=== PATIENT | male | born 1955 | race Caucasian/White ===

== ENCOUNTER 2018-07-23 15:12 | Emergency (ER) | payer OTHER, BC ==
[2018-07-23 15:51] LABS: BASOPHILS # (AUTO) 0.1 10^3/uL (0.0-0.1); BASOPHILS % (AUTO) 0.4 %; EOSINOPHILS % (AUTO) 0.1 %; HGB - HEMOGLOBIN 14.7 g/dL (14.0-18.0); LYMPHOCYTES # (AUTO) 0.8 10^3/uL (1.5-3.5); LYMPHOCYTES % (AUTO) 6.3 %; MEAN CORPUSCULAR HEMOGLOBIN 30.6 pg (27.0-31.0); MEAN CORPUSCULAR HGB CONC 33.6 g/dL (32.0-36.0); MEAN CORPUSCULAR VOLUME 90.9 fL (80.0-94.0); MEAN PLATELET VOLUME 8.6 fL (7.4-11.4); MONOCYTES # (AUTO) 1.2 10^3/uL (0.0-1.0); MONOCYTES % (AUTO) 8.7 %; NEUTROPHILS # (AUTO) 11.3 10^3/uL (1.5-6.6); NEUTROPHILS % (AUTO) 84.5 %; PLT - PLATELET COUNT 193 10^3/uL (130-450); RED CELL DISTRIBUTION WIDTH 14.3 % (12.0-15.0); WHITE BLOOD COUNT 13.4 x10^3/uL (4.8-10.8)
[2018-07-23 16:09] LABS: ALBUMIN 4.7 g/dL (3.2-5.5); ALBUMIN/GLOBULIN RATIO 1.3 (1.0-2.2); BILIRUBIN,TOTAL 1.1 mg/dL (0.2-1.0); CALCIUM 9.7 mg/dL (8.5-10.3); CREATININE 1.1 mg/dL (0.6-1.2); TOTAL PROTEIN 8.2 g/dL (6.7-8.2)
--- NOTE | 2018-07-23 19:29 | ED Physician Documentation ---
PD HPI ABD PAIN - Stated complaint Stated Complaint: RT SIDE PX/VOMITING - Chief complaint Chief Complaint: Abd Pain - History obtained from History obtained from: Patient - History of Present Illness Timing - onset: Last night (overnight had onset of abd pain and firmness of an abdominal hernia. Typically it is softer but rarely reducible. He had vomiting and distension of the abdomen. This continued through the day, and the patient tried resting on back, some pressure on the hernia, but was not improving. He has had it get hard and feel nauseated in the past, but has been for just few minutes at a time. He has been in consultation with Dr. Garcia, surgery at [facility], who did the initial hernia repair, and has been following on this recurrent hernia.) Timing - duration: Days (1) Timing - details: Abrupt onset Quality: Cramping, Aching, Fullness/distended, Pain Location: All over / everywhere (but particularly at the hernia area.) Radiation: No: Chest, Lower back Improved by: Vomiting Worsened by: Eating, Palpation. No: Breathing Similar symptoms before: Has not had sx before (has had pains at the hernia, but no prior episodes) Recently seen: Not recently seen Review of Systems Ten Systems: 10 systems reviewed and negative Constitutional: denies: Fever, Chills Nose: denies: Rhinorrhea / runny nose, Congestion Throat: denies: Sore throat Cardiac: denies: Chest pain / pressure, Palpitations Respiratory: denies: Cough GI: reports: Abdominal Pain, Abdominal Swelling (today), Nausea, Vomiting : denies: Dysuria, Frequency Neurologic: denies: Generalized weakness, Near syncope, Altered mental status PD PAST MEDICAL HISTORY - Past Medical History Cardiovascular: None Respiratory: None Neuro: None GI: None : Other (kidney transplant) Musculoskeletal: Other (abdominal hernia) - Past Surgical History Past Surgical History: Yes - Present Medications Home Medications: Ambulatory Orders Medication Instructions Recorded Confirmed Aspirin [Aspir 81] 81 mg PO DAILY 05/15/14 03/09/15 Cholecalciferol (Vitamin D3) 50 mcg PO DAILY 05/15/14 03/09/15 [Vitamin D-3] Ezetimibe [Zetia] 10 mg PO QPM 05/15/14 03/09/15 Metoprolol Tartrate 25 mg PO BID 05/15/14 03/09/15 Mycophenolate Mofetil [Cellcept] 500 mg PO BID 05/15/14 03/09/15 cycloSPORINE [Cyclosporine] 100 mg PO BID 05/15/14 03/09/15 Hydrocodone/Acetaminophen [Hallock 1 each PO Q6H PRN #20 tablet 03/09/15 5-325 Tablet] Allopurinol 100 mg PO DAILY 06/05/16 06/05/16 - Allergies Allergies/Adverse Reactions: Allergies Allergy/AdvReac Type Severity Reaction Status Date / Time Ykvneaw-Pnr-Nkx Reductase Allergy Unknown Verified 07/23/18 15:23 Inhibitor - Social History Does the pt smoke?: No Smoking Status: Never smoker Does the pt drink ETOH?: Yes Does the pt have substance abuse?: No - Immunizations Immunizations are current?: Yes PD ED PE NORMAL - Vitals Vital signs reviewed: Yes - General General: Alert and oriented X 3, Well developed/nourished, Other - HEENT HEENT: Atraumatic, Pharynx benign. No: Moist mucous membranes - Neck Neck: Supple, no meningeal sign, No adenopathy - Cardiac Cardiac: RRR, No murmur - Respiratory Respiratory: Clear bilaterally - Abdomen Abdomen: No organomegaly, Other (moderate distension generally. There is large firm tender hernia mass right periumbilical area. The hernia is not reducible. Increased bowel sounds generally in abdomen. ). No: Normal bowel sounds - Male Male : Deferred - Rectal Rectal: Deferred - Back Back: No CVA TTP - Derm Derm: Normal color - Extremities Extremities: No deformity, No tenderness to palpate, Normal ROM s pain, No edema, No calf tenderness / cord - Neuro Neuro: Alert and oriented X 3, No motor deficit, Normal speech Results - Vitals Vitals: Vital Signs - 24 hr 07/23/18 07/23/18 07/23/18 15:19 18:03 21:12 Temperature 36.7 C 37.1 C Heart Rate 73 78 53 L Respiratory 16 16 11 L Rate Blood Pressure 157/90 H 155/82 H 125/76 O2 Saturation 97 98 97 07/23/18 23:22 Temperature 37.6 C H Heart Rate 77 Respiratory 16 Rate Blood Pressure 105/61 O2 Saturation 97 Oxygen O2 Source Room air - Labs Labs: Laboratory Tests 07/23/18 07/23/18 15:46 15:46 WBC 13.4 H RBC 4.80 Hgb 14.7 Hct 43.6 MCV 90.9 MCH 30.6 MCHC 33.6 RDW 14.3 Plt Count 193 MPV 8.6 Neut # (Auto) 11.3 H Lymph # (Auto) 0.8 L Centre # (Auto) 1.2 H Eos # (Auto) 0.0 Baso # (Auto) 0.1 Absolute Nucleated RBC 0.00 Nucleated RBC % 0.0 Sodium 140 Potassium 3.9 Chloride 107 Carbon Dioxide 22 Anion Gap 11.0 BUN 27 H Creatinine 1.1 Estimated GFR (MDRD) 68 L Glucose 140 H Calcium 9.7 Total Bilirubin 1.1 H AST 23 ALT 23 Alkaline Phosphatase 76 Total Protein 8.2 Albumin 4.7 Globulin 3.5 Albumin/Globulin Ratio 1.3 Lipase 21 L - Rads (name of study) abd CT Radiology: Prelim report reviewed (incarcerated hernia with upstream small bowl obstruction pattern. Renal transplant noted. ), EMP read contemporaneously, See rad report PD MEDICAL DECISION MAKING - ED course Complexity details: reviewed results, re-evaluated patient (The patient is having less abdominal pain and no vomiting at this time. He took some sips of water and feels slightly bloated. His abdomen is much less tender generally. The umbilical or abdominal wall hernia is not reducible but it is less hard than it was on first presentation. The CT scan shows bowel obstruction pattern. At this point I think the patient will need surgical intervention. He has been working with a Dr. Garcia, Surgery, at [facility] about this. The patient has received his kidney transplant at [facility] as well. His preference would be to be transferred for more definitive care. I do feel he is stable for transfer.), considered differential, d/w patient, d/w solutions sales consultant (Yokasta Proctor, pension adviser for surgery at [facility]. ) Departure - Departure Disposition: 02 Transfer Acute Care Hosp Clinical Impression: Incarcerated hernia of abdominal cavity, Partial small bowel obstruction Condition: Stable Record reviewed to determine appropriate education?: Yes
[2018-07-23] MEDS: HYDROmorphone 1 MG/ML CARPUJECT IVP STA ×2 (20:28→23:59)
[2018-07-23] MEDS: ONDANSETRON 4 MG/2 ML VIAL IVP STA (20:28)
[2018-07-23] MEDS: SODIUM CHLORIDE 0.9% 1,000 ML IV ONE ×2 (20:28→23:59)
[2018-07-23] MEDS ORDERED: IOVERSOL 320 100 ML VIAL IVP ONE (22:07)
--- NOTE | 2018-07-23 22:39 | CT Report ---
Reason: hernia with vomiting; eval for obstruction Procedure Date: 07/23/2018 Accession Number: [id number] / [id number] Procedure: CT - Abdomen/Pelvis W/ CPT Code: FULL RESULT: EXAM: CT ABDOMEN AND PELVIS WITH CONTRAST. EXAM DATE: 07/23/2018 10:23 PM. CLINICAL HISTORY: Hernia with vomiting; evaluate for obstruction. COMPARISONS: None. TECHNIQUE: Routine helical CT imaging was performed through the abdomen and pelvis. IV contrast: Yes . Enteric contrast: No . Reconstructions: Coronal and sagittal. In accordance with CT protocol optimization, one or more of the following dose reduction techniques were utilized for this exam: automated exposure control, adjustment of mA and/or KV based on patient size, or use of iterative reconstructive technique. FINDINGS: Lung Bases: Unremarkable. Liver: Unremarkable. No suspicious masses. Gallbladder/Bile Ducts: Unremarkable. Spleen: Unremarkable. Pancreas: Unremarkable. Adrenal Glands: Unremarkable. Kidneys: Atrophic [place] kidneys with unremarkable appearing left pelvic transplant kidney. Peritoneal Cavity/Bowel: Mid small bowel obstruction with transition in a large left periumbilical hernia containing a moderately long segment of incarcerated mid small bowel. Mild mesenteric edema adjacent to the dilated loops of proximal bowel. No gross bowel wall thickening or free air. Pelvic Organs: Bladder and prostate appear unremarkable. Vasculature: No aneurysms or other significant abnormality. Bones: No significant abnormality. Other: Smaller supraumbilical midline fat-containing hernia is without apparent complication. IMPRESSION: 1. Small bowel obstruction secondary to an incarcerated segment of mid small bowel within a large left periumbilical hernia. Mild mesenteric edema. 2. Smaller supraumbilical midline fat-containing hernias without apparent complication. 3. Left pelvic transplant kidney appears unremarkable. RADIA
[2018-07-24] MEDS: ONDANSETRON 4 MG/2 ML VIAL IVP STA (00:03)
[2018-07-24 01:32] VITALS: BP 136/69
[2018-07-24] MEDS ORDERED: IOVERSOL 320 100 ML VIAL IVP ONE (03:18)
[2018-07-24] MEDS: IOVERSOL 320 100 ML VIAL IVP ONE (03:18)
== END 2018-07-24 01:59 | disposition short-term general hospital (02) ==
LOC: ED 15:12
DX: K42.0 Umbilical hernia with obstruction, without gangrene (principal); K56.609 Unspecified intestinal obstruction, unspecified as to partial versus complete obstruction; Z94.0 Kidney transplant status; Z79.82 Long term (current) use of aspirin
CPT/HCPCS: 36415; 74177; 80053; 81001; 81003; 83690; 85025; 87086; 96361; 96374; 96375; 96376; 99284

== ENCOUNTER 2018-09-23 11:43 | Outpatient (CLI) | payer OTHER, BC ==
--- NOTE | 2018-09-23 15:14 | XRAY Report ---
Reason: ANKLE JOINT PX, LEFT/GOUTY ARTHROPATHY Procedure Date: 09/23/2018 Accession Number: [id number] / [id number] Procedure: WCP - Ankle 2 View LT CPT Code: FULL RESULT: EXAM: LEFT ANKLE RADIOGRAPHY EXAM DATE: 09/23/2018 11:55 AM. CLINICAL HISTORY: Ankle joint pain, left/gouty arthropathy. COMPARISON: None. TECHNIQUE: 2 views. FINDINGS: Bones: Mild posterior and inferior calcaneal enthesopathy is noted. No fractures or bone lesions. Joints: Trace ankle effusion. No subluxations. The ankle mortise is normally aligned. Soft Tissues: Soft tissue swelling. IMPRESSION: No definite destructive osseous changes. RADIA
== END 2018-09-23 11:44 | disposition home or self-care (01) ==
LOC: DI.WCP 11:43
PROVIDERS: ATTEND Family Medicine
DX: M25.572 Pain in left ankle and joints of left foot (principal); M10.00 Idiopathic gout, unspecified site
CPT/HCPCS: 36415; 84550

== ENCOUNTER 2018-09-23 12:06 | Outpatient (CLI) | payer OTHER, BC | END 2018-09-23 12:07 | disposition home or self-care (01) | LOC: LAB.WCP 12:06 | PROVIDERS: ATTEND Family Medicine | DX: M25.572 Pain in left ankle and joints of left foot (principal); M10.00 Idiopathic gout, unspecified site | CPT/HCPCS: 36415; 84550 ==

== ENCOUNTER 2019-02-18 11:09 | Outpatient (CLI) | payer OTHER, BC ==
[2019-02-18 19:02] LABS: BASOPHILS # (AUTO) 0.1 10^3/uL (0.0-0.1); BASOPHILS % (AUTO) 1.5 %; EOSINOPHILS # (AUTO) 0.2 10^3/uL (0.0-0.7); EOSINOPHILS % (AUTO) 3.6 %; LYMPHOCYTES # (AUTO) 1.5 10^3/uL (1.5-3.5); LYMPHOCYTES % (AUTO) 27.8 %; MEAN CORPUSCULAR HEMOGLOBIN 29.2 pg (27.0-31.0); MEAN CORPUSCULAR HGB CONC 30.3 g/dL (32.0-36.0); MEAN CORPUSCULAR VOLUME 96.4 fL (80.0-94.0); MEAN PLATELET VOLUME 11.2 fL (7.4-11.4); MONOCYTES # (AUTO) 0.8 10^3/uL (0.0-1.0); MONOCYTES % (AUTO) 15.1 %; NEUTROPHILS # (AUTO) 2.7 10^3/uL (1.5-6.6); NEUTROPHILS % (AUTO) 51.6 %; PLT - PLATELET COUNT 217 10^3/uL (130-450); RED BLOOD COUNT 4.45 10^6/uL (4.70-6.10); RED CELL DISTRIBUTION WIDTH 14.3 % (12.0-15.0); WHITE BLOOD COUNT 5.3 x10^3/uL (4.8-10.8)
[2019-02-18 19:27] LABS: ALBUMIN 4.3 g/dL (3.2-5.5); ALBUMIN/GLOBULIN RATIO 1.2 (1.0-2.2); BILIRUBIN,TOTAL 0.7 mg/dL (0.2-1.0); CALCIUM 9.8 mg/dL (8.5-10.3); TOTAL PROTEIN 7.9 g/dL (6.7-8.2)
== END 2019-02-18 11:10 | disposition home or self-care (01) ==
LOC: LAB.WCP 11:09
PROVIDERS: ATTEND Family Medicine
DX: I10 Essential (primary) hypertension (principal); Z12.5 Encounter for screening for malignant neoplasm of prostate
CPT/HCPCS: 36415; 80053; 84153; 85025

== ENCOUNTER 2019-10-09 12:38 | Outpatient (CLI) | payer OTHER, BC ==
[2019-10-09 13:15] LABS: BASOPHILS # (AUTO) 0.1 10^3/uL (0.0-0.1); BASOPHILS % (AUTO) 1.4 %; EOSINOPHILS # (AUTO) 0.2 10^3/uL (0.0-0.7); EOSINOPHILS % (AUTO) 2.7 %; HGB - HEMOGLOBIN 14.4 g/dL (14.0-18.0); LYMPHOCYTES # (AUTO) 1.9 10^3/uL (1.5-3.5); LYMPHOCYTES % (AUTO) 28.4 %; MEAN CORPUSCULAR HEMOGLOBIN 30.2 pg (27.0-31.0); MEAN CORPUSCULAR HGB CONC 31.9 g/dL (32.0-36.0); MEAN CORPUSCULAR VOLUME 94.5 fL (80.0-94.0); MEAN PLATELET VOLUME 10.3 fL (7.4-11.4); MONOCYTES # (AUTO) 0.8 10^3/uL (0.0-1.0); MONOCYTES % (AUTO) 12.5 %; NEUTROPHILS # (AUTO) 3.6 10^3/uL (1.5-6.6); NEUTROPHILS % (AUTO) 54.4 %; PLT - PLATELET COUNT 212 10^3/uL (130-450); RED BLOOD COUNT 4.77 10^6/uL (4.70-6.10); RED CELL DISTRIBUTION WIDTH 13.8 % (12.0-15.0); WHITE BLOOD COUNT 6.7 x10^3/uL (4.8-10.8)
[2019-10-09 13:19] LABS: BILIRUBIN,URINE NEGATIVE (NEGATIVE); GLUCOSE, URINE (UA) NEGATIVE (NEGATIVE); KETONES,URINE (UA) NEGATIVE (NEGATIVE); LEUKOCYTE ESTERASE, URINE NEGATIVE (NEGATIVE); NITRITE,URINE NEGATIVE (NEGATIVE); OCCULT BLOOD,URINE MODERATE (NEGATIVE); PH,URINE 5.5 PH (5.0-7.5); PROTEIN,URINE TRACE mg/dL (NEGATIVE); UROBILINOGEN,URINE 0.2 (NORMAL) E.U./dL (NORMAL)
[2019-10-09 13:25] LABS: CLARITY,URINE CLEAR (CLEAR)
[2019-10-09 13:27] LABS: BACTERIA,URINE Rare /HPF (None Seen); RBC,URINE 0-5 /HPF (0-5); SQUAMOUS EPITHELIAL CELL,UR NONE SEEN (<= Few)
[2019-10-09 13:34] LABS: ALBUMIN 4.6 g/dL (3.2-5.5); CALCIUM 9.7 mg/dL (8.5-10.3); CREATININE 1.3 mg/dL (0.6-1.2); PHOSPHORUS 3.8 mg/dL (2.5-4.6); URIC ACID 5.8 mg/dL (2.6-7.2)
[2019-10-09 14:00] LABS: MAGNESIUM 2.5 mg/dL (1.7-2.8)
== END 2019-10-09 12:39 | disposition home or self-care (01) ==
LOC: LAB 12:38
PROVIDERS: ATTEND Internal Medicine Nephrology
DX: Z94.0 Kidney transplant status (principal)
CPT/HCPCS: 36415; 80069; 80158; 81001; 81003; 81599; 82310; 83540; 83735; 83970; 84466; 84550; 85025; 87086

== ENCOUNTER 2020-01-07 11:12 | Outpatient (CLI) | payer OTHER, BC ==
[2020-01-07 11:34] LABS: BASOPHILS # (AUTO) 0.1 10^3/uL (0.0-0.1); BASOPHILS % (AUTO) 1.6 %; EOSINOPHILS # (AUTO) 0.2 10^3/uL (0.0-0.7); MEAN CORPUSCULAR HEMOGLOBIN 30.4 pg (27.0-31.0); MEAN CORPUSCULAR HGB CONC 32.6 g/dL (32.0-36.0); MEAN CORPUSCULAR VOLUME 93.5 fL (80.0-94.0); MONOCYTES # (AUTO) 0.7 10^3/uL (0.0-1.0); MONOCYTES % (AUTO) 11.7 %; NEUTROPHILS # (AUTO) 3.3 10^3/uL (1.5-6.6); NEUTROPHILS % (AUTO) 52.1 %; PLT - PLATELET COUNT 256 10^3/uL (130-450); RED CELL DISTRIBUTION WIDTH 13.7 % (12.0-15.0); WHITE BLOOD COUNT 6.3 x10^3/uL (4.8-10.8)
[2020-01-07 11:43] LABS: BILIRUBIN,URINE NEGATIVE (NEGATIVE); GLUCOSE, URINE (UA) NEGATIVE (NEGATIVE); KETONES,URINE (UA) NEGATIVE (NEGATIVE); LEUKOCYTE ESTERASE, URINE NEGATIVE (NEGATIVE); NITRITE,URINE NEGATIVE (NEGATIVE); OCCULT BLOOD,URINE MODERATE (NEGATIVE); PH,URINE 5.5 PH (5.0-7.5); PROTEIN,URINE 100 mg/dL (NEGATIVE); UROBILINOGEN,URINE 0.2 (NORMAL) E.U./dL (NORMAL)
[2020-01-07 11:45] LABS: CLARITY,URINE CLEAR (CLEAR)
[2020-01-07 11:54] LABS: BACTERIA,URINE Rare /HPF (None Seen); SQUAMOUS EPITHELIAL CELL,UR NONE SEEN (<= Few)
[2020-01-07 11:55] LABS: ALBUMIN 3.8 g/dL (3.2-5.5); CALCIUM 9.5 mg/dL (8.5-10.3); CREATININE 1.4 mg/dL (0.6-1.2); PHOSPHORUS 3.9 mg/dL (2.5-4.6)
== END 2020-01-07 11:13 | disposition home or self-care (01) ==
LOC: LAB 11:12
PROVIDERS: ATTEND Internal Medicine Nephrology
DX: Z94.0 Kidney transplant status (principal)
CPT/HCPCS: 36415; 80069; 81001; 81003; 81599; 83540; 83735; 83970; 84466; 84550; 85025; 87086

== ENCOUNTER 2020-01-27 11:14 | Outpatient (CLI) | payer OTHER, BC ==
[2020-01-27 12:19] LABS: BILIRUBIN,URINE NEGATIVE (NEGATIVE); CLARITY,URINE CLEAR (CLEAR); GLUCOSE, URINE (UA) NEGATIVE (NEGATIVE); KETONES,URINE (UA) NEGATIVE (NEGATIVE); LEUKOCYTE ESTERASE, URINE NEGATIVE (NEGATIVE); NITRITE,URINE NEGATIVE (NEGATIVE); OCCULT BLOOD,URINE MODERATE (NEGATIVE); PROTEIN,URINE 100 mg/dL (NEGATIVE); UROBILINOGEN,URINE 0.2 (NORMAL) E.U./dL (NORMAL)
[2020-01-27 12:23] LABS: BACTERIA,URINE None Seen /HPF (None Seen); MUCUS,URINE Few Strands; SQUAMOUS EPITHELIAL CELL,UR RARE Squamous (<= Few)
== END 2020-01-27 11:15 | disposition home or self-care (01) ==
LOC: LAB 11:14
PROVIDERS: ATTEND Internal Medicine Nephrology
DX: Z94.0 Kidney transplant status (principal); R31.9 Hematuria, unspecified; K80.20 Calculus of gallbladder without cholecystitis without obstruction
CPT/HCPCS: 81001; 87086

== ENCOUNTER 2020-01-31 07:16 | Outpatient (CLI) | payer OTHER, BC ==
--- NOTE | 2020-01-31 12:37 | Ultrasound Report ---
PROCEDURE: Abdomen Complete INDICATIONS: HEMATURIA, GALLSTONES TECHNIQUE: Real-time scanning was performed of the abdominal and retroperitoneal organs, with image documentatio n. COMPARISON: CT abdomen and pelvis with contrast dated 07/23/2018. FINDINGS: Liver: Liver is normal in size and homogeneous in echotexture. Gallbladder: Gallbladder is unremarkable. No stones are gallbladder wall thickening or pain. Biliary ducts: Intrahepatic bile ducts are non-dilated. Extrahepatic bile duct caliber measures 6 m m. Normal is 6-7 mm or less in diameter, or 10 mm or less post-cholecystectomy. Pancreas: Pancreas is not visualized secondary to overlying bowel gas. Spleen: Spleen is normal in size and homogeneous in echotexture. Kidneys: A left iliac fossa transplant kidney is normal in appearance, measuring 13.6 cm, with no hyd ronephrosis. [place] kidneys are remarkably small and shrunken. The right kidney measures 6.0 cm. The left kidney measures 6.2 cm. Aorta: Visualized aorta is normal in caliber at less than 3 cm. Iliacs: Proximal common iliac arteries are normal in caliber at less than 2.5 cm. IVC: Intrahepatic inferior vena cava is patent. Miscellaneous: No free abdominal fluid. IMPRESSION: 1. Normal-appearing transplant kidney without hydronephrosis or stone identified. 2. Small and shrunken [place] kidneys. 3. No gallstones appreciated today. Gallbladder is unremarkable. 4. Otherwise unremarkable study Reviewed by: Sheldon No MD on 01/31/2020 11:35 AM MIGUEL Approved by: Sheldon No MD on 01/31/2020 11:35 AM AKMADAY Station ID: [id number]
== END 2020-01-31 07:17 | disposition home or self-care (01) ==
LOC: DI 07:16
PROVIDERS: ATTEND Internal Medicine Nephrology
DX: R31.9 Hematuria, unspecified (principal); K80.20 Calculus of gallbladder without cholecystitis without obstruction; Z94.0 Kidney transplant status
CPT/HCPCS: 76700

== ENCOUNTER 2020-04-06 11:36 | Outpatient (CLI) | payer OTHER, BC ==
[2020-04-06 12:07] LABS: BASOPHILS # (AUTO) 0.1 10^3/uL (0.0-0.1); BASOPHILS % (AUTO) 1.4 %; EOSINOPHILS # (AUTO) 0.2 10^3/uL (0.0-0.7); EOSINOPHILS % (AUTO) 2.9 %; HGB - HEMOGLOBIN 13.4 g/dL (14.0-18.0); LYMPHOCYTES # (AUTO) 1.8 10^3/uL (1.5-3.5); LYMPHOCYTES % (AUTO) 29.4 %; MEAN CORPUSCULAR HEMOGLOBIN 29.7 pg (27.0-31.0); MEAN CORPUSCULAR HGB CONC 31.6 g/dL (32.0-36.0); MEAN PLATELET VOLUME 10.7 fL (7.4-11.4); MONOCYTES # (AUTO) 0.7 10^3/uL (0.0-1.0); MONOCYTES % (AUTO) 11.3 %; NEUTROPHILS # (AUTO) 3.4 10^3/uL (1.5-6.6); NEUTROPHILS % (AUTO) 54.7 %; PLT - PLATELET COUNT 214 10^3/uL (130-450); RED BLOOD COUNT 4.51 10^6/uL (4.70-6.10); RED CELL DISTRIBUTION WIDTH 14.1 % (12.0-15.0); WHITE BLOOD COUNT 6.3 x10^3/uL (4.8-10.8)
[2020-04-06 12:11] LABS: BILIRUBIN,URINE NEGATIVE (NEGATIVE); GLUCOSE, URINE (UA) NEGATIVE (NEGATIVE); KETONES,URINE (UA) NEGATIVE (NEGATIVE); LEUKOCYTE ESTERASE, URINE NEGATIVE (NEGATIVE); NITRITE,URINE NEGATIVE (NEGATIVE); OCCULT BLOOD,URINE MODERATE (NEGATIVE); PROTEIN,URINE 30 mg/dL (NEGATIVE); UROBILINOGEN,URINE 0.2 (NORMAL) E.U./dL (NORMAL)
[2020-04-06 12:26] LABS: BACTERIA,URINE None Seen /HPF (None Seen); CLARITY,URINE CLEAR (CLEAR); SQUAMOUS EPITHELIAL CELL,UR NONE SEEN (<= Few)
[2020-04-06 12:35] LABS: FERRITIN 262.9 ng/mL (23.9-336.2)
[2020-04-06 12:41] LABS: ALBUMIN 4.2 g/dL (3.2-5.5); CALCIUM 9.7 mg/dL (8.5-10.3); CREATININE 1.3 mg/dL (0.6-1.2); MAGNESIUM 2.2 mg/dL (1.7-2.8); PHOSPHORUS 3.6 mg/dL (2.5-4.6); URIC ACID 5.2 mg/dL (2.6-7.2)
== END 2020-04-06 11:37 | disposition home or self-care (01) ==
LOC: LAB 11:36
PROVIDERS: ATTEND Internal Medicine Nephrology
DX: Z94.0 Kidney transplant status (principal)
CPT/HCPCS: 36415; 80069; 80158; 81001; 81599; 82728; 83540; 83735; 83970; 84466; 84550; 85025; 87086

== ENCOUNTER 2020-06-03 11:17 | Outpatient (CLI) | payer OTHER, BC ==
[2020-06-03 11:36] LABS: BASOPHILS # (AUTO) 0.1 10^3/uL (0.0-0.1); BASOPHILS % (AUTO) 1.3 %; EOSINOPHILS # (AUTO) 0.2 10^3/uL (0.0-0.7); EOSINOPHILS % (AUTO) 3.4 %; HGB - HEMOGLOBIN 13.7 g/dL (14.0-18.0); LYMPHOCYTES # (AUTO) 2.3 10^3/uL (1.5-3.5); LYMPHOCYTES % (AUTO) 34.2 %; MEAN CORPUSCULAR HEMOGLOBIN 30.6 pg (27.0-31.0); MEAN CORPUSCULAR HGB CONC 32.4 g/dL (32.0-36.0); MEAN CORPUSCULAR VOLUME 94.4 fL (80.0-94.0); MEAN PLATELET VOLUME 10.6 fL (7.4-11.4); MONOCYTES # (AUTO) 0.9 10^3/uL (0.0-1.0); MONOCYTES % (AUTO) 13.9 %; NEUTROPHILS # (AUTO) 3.1 10^3/uL (1.5-6.6); NEUTROPHILS % (AUTO) 46.6 %; PLT - PLATELET COUNT 203 10^3/uL (130-450); RED BLOOD COUNT 4.48 10^6/uL (4.70-6.10); RED CELL DISTRIBUTION WIDTH 13.9 % (12.0-15.0); WHITE BLOOD COUNT 6.7 x10^3/uL (4.8-10.8)
[2020-06-03 11:59] LABS: CALCIUM 9.2 mg/dL (8.5-10.3); CREATININE 1.2 mg/dL (0.6-1.2); MAGNESIUM 2.1 mg/dL (1.7-2.8); PHOSPHORUS 3.3 mg/dL (2.5-4.6)
[2020-06-03 12:15] LABS: BILIRUBIN,URINE NEGATIVE (NEGATIVE); GLUCOSE, URINE (UA) NEGATIVE (NEGATIVE); KETONES,URINE (UA) NEGATIVE (NEGATIVE); LEUKOCYTE ESTERASE, URINE NEGATIVE (NEGATIVE); NITRITE,URINE NEGATIVE (NEGATIVE); OCCULT BLOOD,URINE MODERATE (NEGATIVE); PROTEIN,URINE 30 mg/dL (NEGATIVE); UROBILINOGEN,URINE 0.2 (NORMAL) E.U./dL (NORMAL)
[2020-06-03 12:16] LABS: CLARITY,URINE CLEAR (CLEAR)
[2020-06-03 12:35] LABS: RBC,URINE 0-5 /HPF (0-5); SQUAMOUS EPITHELIAL CELL,UR NONE SEEN (<= Few)
[2020-06-03 12:36] LABS: BACTERIA,URINE None Seen /HPF (None Seen)
[2020-06-10 16:26] LABS: SOURCE BLOOD
== END 2020-06-03 11:18 | disposition home or self-care (01) ==
LOC: LAB 11:17
PROVIDERS: ATTEND Internal Medicine
DX: T86.10 Unspecified complication of kidney transplant (principal); Z29.8 Encounter for other specified prophylactic measures; R82.90 Unspecified abnormal findings in urine
CPT/HCPCS: 36415; 80048; 80158; 81001; 81374; 81599; 83735; 84100; 85025; 87086

== ENCOUNTER 2020-06-13 08:00 | Outpatient (CLI) | payer OTHER, BC ==
[2020-06-13 11:51] LABS: CREATININE,URINE 138.7 mg/dL; MICROALBUM/CREATININE RATIO,UR 282.6 ug/mg (<30.0); MICROALBUMIN,URINE 39.2 mg/dL (0-300.0)
== END 2020-06-13 23:59 | disposition home or self-care (01) ==
LOC: LAB 08:00
PROVIDERS: ATTEND Internal Medicine
DX: Z94.0 Kidney transplant status (principal); T86.10 Unspecified complication of kidney transplant; Z29.8 Encounter for other specified prophylactic measures; R82.90 Unspecified abnormal findings in urine
CPT/HCPCS: 36415; 80158; 81599; 82043; 82570; 87798

== ENCOUNTER 2020-08-10 13:37 | Outpatient (CLI) | payer OTHER, BC ==
[2020-08-10 14:26] LABS: BASOPHILS # (AUTO) 0.1 10^3/uL (0.0-0.1); BASOPHILS % (AUTO) 1.1 %; EOSINOPHILS # (AUTO) 0.2 10^3/uL (0.0-0.7); EOSINOPHILS % (AUTO) 2.6 %; HGB - HEMOGLOBIN 14.2 g/dL (14.0-18.0); LYMPHOCYTES # (AUTO) 1.9 10^3/uL (1.5-3.5); LYMPHOCYTES % (AUTO) 24.7 %; MEAN CORPUSCULAR HEMOGLOBIN 30.6 pg (27.0-31.0); MEAN CORPUSCULAR HGB CONC 32.8 g/dL (32.0-36.0); MEAN CORPUSCULAR VOLUME 93.3 fL (80.0-94.0); MEAN PLATELET VOLUME 10.7 fL (7.4-11.4); MONOCYTES # (AUTO) 0.9 10^3/uL (0.0-1.0); MONOCYTES % (AUTO) 11.9 %; NEUTROPHILS # (AUTO) 4.5 10^3/uL (1.5-6.6); NEUTROPHILS % (AUTO) 59.3 %; PLT - PLATELET COUNT 210 10^3/uL (130-450); RED BLOOD COUNT 4.64 10^6/uL (4.70-6.10); RED CELL DISTRIBUTION WIDTH 13.8 % (12.0-15.0); WHITE BLOOD COUNT 7.6 x10^3/uL (4.8-10.8)
[2020-08-10 14:58] LABS: ALBUMIN 4.4 g/dL (3.2-5.5); CALCIUM 9.9 mg/dL (8.5-10.3); CREATININE 1.3 mg/dL (0.6-1.2); PHOSPHORUS 3.2 mg/dL (2.5-4.6); URIC ACID 5.5 mg/dL (2.6-7.2)
[2020-08-10 19:03] LABS: BILIRUBIN,URINE NEGATIVE (NEGATIVE); GLUCOSE, URINE (UA) NEGATIVE (NEGATIVE); KETONES,URINE (UA) NEGATIVE (NEGATIVE); LEUKOCYTE ESTERASE, URINE NEGATIVE (NEGATIVE); NITRITE,URINE NEGATIVE (NEGATIVE); OCCULT BLOOD,URINE MODERATE (NEGATIVE); PH,URINE 5.5 PH (5.0-7.5); PROTEIN,URINE 100 mg/dL (NEGATIVE); UROBILINOGEN,URINE 0.2 (NORMAL) E.U./dL (NORMAL)
[2020-08-10 19:14] LABS: CLARITY,URINE CLEAR (CLEAR)
[2020-08-10 19:44] LABS: BACTERIA,URINE None Seen /HPF (None Seen); SQUAMOUS EPITHELIAL CELL,UR RARE Squamous (<= Few)
--- OUTSIDE RECORDS SUMMARY | 2020-08-17 00:46 | EXTERNAL MEDICAL SUMMARY RPT | Continuity of Care Document ---
:1955 Demographics Phone Unavailable Preferred Language Unknown Marital Status Unknown Church Affiliation Unknown Race Unknown Ethnic Group Unknown Author Organization [facility] Address [address] [place] [address] Phone Care Team Providers Name Role Phone Ochi Unavailable Unavailable Lang Unavailable Unavailable NICOLE Unavailable Unavailable Problems date description facility 2014-05-15 12:[address] [facility] 2014-05-15 12:01 PAIN IN LIMB [facility] 2014-05-15 12:01 KIDNEY TRANSPLANT STATUS [facility] 2014-06-04 10:[address] [facility] 2014-06-04 10:31 COMPLICATIONS OF TRANSPLANTED [facility] KIDNEY 2014-06-04 10:31 PROPHYLA[address]APY [facility] 2014-06-04 10:31 SCREEN MAL NEOP-PROSTATE [facility] 2014-06-04 10:37 SCREEN MAL NEOP-PROSTATE [facility] 2015-03-09 16:25 ENTHESOPATHY OF WRIST [facility] dical [place] 2015-03-09 16:25 PAIN IN LIMB [facility] 2015-03-09 16:25 NONSPECIF SKIN ERUPT NEC [facility] 2015-05-24 11:45 ENCOUNTER FOR SCREENING FOR [facility] MALIGNANT NEOPLASM OF PROSTATE 2015-06-01 11:44 UNSPECIFIED COMPLICATION OF KIDNEY [facility] TRANSPLANT 2015-06-01 11:44 KIDNEY TRANSPLANT STATUS [facility] 2016-01-30 08:04 IDIOPATHIC GOUT, UNSPECIFIED SITE [facility] 2016-01-30 08:04 CONTACT W AND EXPOSURE TO INFECT W [facility] A SEXL MODE OF TRANSMISS 2016-05-22 08:00 ENCOUNTER FOR SCREENING, [facility] UNSPECIFIED 2016-05-22 08:00 KIDNEY TRANSPLANT STATUS [facility] 2016-06-05 14:53 VENTRAL HERNIA WITHOUT OBSTRUCTION [facility] OR GANGRENE 2016-06-05 14:53 CALCULUS OF GALLBLADDER W/O [facility] CHOLECYSTITIS W/O OBSTRUCTION 2016-06-05 14:53 RIGHT UPPER QUADRANT PAIN [facility] 2016-06-05 14:53 RIGHT LOWER QUADRANT PAIN [facility] 2016-06-05 14:53 UNSPECIFIED ABDOMINAL PAIN [facility] 2016-06-05 14:53 ENVIRONMENTAL RESEARCH SCIENTIST (CURRENT) USE OF ASPIRIN [facility] 2016-06-05 14:53 KIDNEY TRANSPLANT STATUS [facility] 2016-07-09 09:55 NONINFECTIVE GASTROENTERITIS AND [facility] COLITIS, UNSPECIFIED 2018-07-23 15:12 UMBILICAL HERNIA WITH OBSTRUCTION, [facility] WITHOUT GANGRENE 2018-07-23 15:12 UNSP INTESTNL OBST, UNSP TO [facility] PARTIAL VERSUS COMPLETE OBST 2018-07-23 15:12 UNSPECIFIED ABDOMINAL PAIN [facility] 2018-07-23 15:12 ENVIRONMENTAL RESEARCH SCIENTIST (CURRENT) USE OF ASPIRIN [facility] 2018-07-23 15:12 KIDNEY TRANSPLANT STATUS [facility] 2018-09-23 11:43 IDIOPATHIC GOUT, UNSPECIFIED SITE [facility] 2018-09-23 11:43 PAIN IN LEFT ANKLE AND JOINTS OF [facility] LEFT FOOT 2018-09-23 12:06 IDIOPATHIC GOUT, UNSPECIFIED SITE [facility] 2018-09-23 12:06 PAIN IN LEFT ANKLE AND JOINTS OF [facility] LEFT FOOT 2019-02-18 11:09 ESSENTIAL (PRIMARY) HYPERTENSION [facility] 2019-02-18 11:09 ENCOUNTER FOR SCREENING FOR [facility] MALIGNANT NEOPLASM OF PROSTATE 2019-10-09 12:38 KIDNEY TRANSPLANT STATUS [facility] 2020-01-07 11:12 KIDNEY TRANSPLANT STATUS [facility] 2020-01-27 11:14 CALCULUS OF GALLBLADDER W/O [facility] CHOLECYSTITIS W/O OBSTRUCTION 2020-01-27 11:14 HEMATURIA, UNSPECIFIED [facility] 2020-01-27 11:14 KIDNEY TRANSPLANT STATUS [facility] 2020-01-31 07:16 CALCULUS OF GALLBLADDER W/O [facility] CHOLECYSTITIS W/O OBSTRUCTION 2020-01-31 07:16 HEMATURIA, UNSPECIFIED [facility] 2020-01-31 07:16 KIDNEY TRANSPLANT STATUS [facility] 2020-04-06 11:36 KIDNEY TRANSPLANT STATUS [facility] 2020-06-02 08:00 KIDNEY TRANSPLANT STATUS [facility] 2020-06-03 09:00 UNSPECIFIED ABNORMAL FINDINGS IN [facility] URINE 2020-06-03 09:00 UNSPECIFIED COMPLICATION OF KIDNEY [facility] TRANSPLANT 2020-06-03 09:00 ENCOUNTER FOR OTHER SPECIFIED [facility] PROPHYLACTIC MEASURES 2020-06-03 09:00 KIDNEY TRANSPLANT STATUS [facility] 2020-06-03 11:17 UNSPECIFIED ABNORMAL FINDINGS IN [facility] URINE 2020-06-03 11:17 UNSPECIFIED COMPLICATION OF KIDNEY [facility] TRANSPLANT 2020-06-03 11:17 ENCOUNTER FOR OTHER SPECIFIED [facility] PROPHYLACTIC MEASURES 2020-06-03 11:17 KIDNEY TRANSPLANT STATUS [facility] 2020-06-13 00:00 KIDNEY TRANSPLANT STATUS [facility] 2020-06-13 08:00 UNSPECIFIED ABNORMAL FINDINGS IN [facility] URINE 2020-06-13 08:00 UNSPECIFIED COMPLICATION OF KIDNEY [facility] TRANSPLANT 2020-06-13 08:00 ENCOUNTER FOR OTHER SPECIFIED [facility] PROPHYLACTIC MEASURES 2020-06-13 08:00 KIDNEY TRANSPLANT STATUS [facility] Allergies date description facility HYDRALAZINE [facility] Medic al [place] TRAMADOL [facility] VERAPAMIL [facility] NO KNOWN ENVIRONMENTAL ALLERGIES [facility] OTHER [facility] NO ALLERGY INFORMATION ON FILE [facility] METFORMIN [facility] PENICILLINS [facility] NO KNOWN ALLERGIES [facility] PENICILLINS [facility] SULFA (SULFONAMIDE ANTIBIOTICS) [facility] AD[facility]ESIVE [facility] NO KNOWN ALLERGIES [facility] CODEINE [facility] OXYCODONE [facility] ASPIRIN [facility] HYDROCHLOROTHIAZIDE [facility] IBUPROFEN [facility] DOXYCYCLINE [facility] ERYTHROMYCIN BASE [facility] POLLEN EXTRACTS [facility] PRAVASTATIN [facility] SIMVASTATIN [facility] AZITHROMYCIN [facility] CHLORHEXIDINE [facility] GABAPENTIN [facility] ATORVASTATIN [facility] LISINOPRIL [facility] LATEX [facility] ROSUVASTATIN CALCIUM [facility] Med ical Center AMOXICILLIN-POT CLAVULANATE [facility] Bfzgbbx-Shx-Rbe Reductase Inhibitor [facility] [place] BEE VENOM [facility] CARIPRAZINE [facility] CODEINE SULFATE [facility] FLUVASTAT[facility] G[facility]APENTIN [facility] MODAFINIL [facility] OXYCODONE [facility] TRAMADOL [facility] NO KNOWN ENVIRONMENTAL ALLERGIES [facility] PENICILLINS [facility] STATINS [facility] SULFA ANTIBIOTICS [facility] SULFONAMIDE DERIVATIVES [facility] [place] Latex, Natural Rubber [facility] dical Center Sulfa (Sulfonamide Antibiotics) [facility] [place] naproxen [facility] LIANE INHIBITORS [facility] ATORVASTATIN CALCIUM [facility] Center CEFTRIAXONE SODIUM [facility] CEPHALEXIN [facility] CLONIDINE HCL [facility] CODEINE [facility] GEMFIBROZIL [facility] HYDROXYCHLOROQUINE [facility] IBANDRONATE SODIUM [facility] LEVOFLOXACIN [facility] LORAZEPAM [facility] PENICILLIN [facility] PENICILLINS [facility] ROSUVASTATIN [facility] TIZANIDINE HCL [facility] IODINE AND IODIDE CONTAINING PRODUCTS [facility] PENICILLINS [facility] SULFA (SULFONAMIDE ANTIBIOTICS) [facility] NO KNOWN ALLERGIES [facility] LACTOSE INTOLERANCE (GI) [facility] APIXABAN [facility] MORPHINE [facility] CODEINE [facility] ASPIRIN [facility] LOVASTATIN [facility] TRAMADOL [facility] CELECOXIB [facility] SULFAMETHOXAZOLE-TRIMETHOPRIM [facility] Penicillins [facility] Sulfa (Sulfonamide Antibiotics) [facility] erythromycin base [facility] Center [id number] [facility] GALANTAMINE HYDROBROMIDE [facility] KETAMINE HCL [facility] Center SULFA ANTIBIOTICS [facility] AMOXICILLIN [facility] Center ATORVASTATIN CALCIUM [facility] Med ical Center CEFTRIAXONE SODIUM [facility] CEPHALEXIN [facility] CODEINE [facility] GEMFIBROZIL [facility] ROSUVASTATIN [facility] NO KNOWN ALLERGIES [facility] PENICILLINS [facility] NO KNOWN ALLERGIES [facility] IODINE [facility] Penicillins [facility] Sulfa (Sulfonamide Antibiotics) [facility] erythromycin base [facility] AMOXICILLIN [facility] ERYTHROMYCIN [facility] MORPHINE [facility] SULFA ANTIBIOTICS [facility] PENICILLINS [facility] DYE [facility] Center OXYBUTYNIN CHLORIDE [facility] Center GEMFIBROZIL [facility] ATORVASTATIN [facility] Results Social History date description facility [id number]
== END 2020-08-10 13:38 | disposition home or self-care (01) ==
LOC: LAB 13:37
PROVIDERS: ATTEND Internal Medicine Nephrology
DX: Z94.0 Kidney transplant status (principal); R31.9 Hematuria, unspecified
CPT/HCPCS: 36415; 80069; 80158; 81001; 81599; 82330; 83519; 83540; 83735; 83970; 84153; 84466; 84550; 85025; 87086

== ENCOUNTER 2020-11-11 10:54 | Outpatient (CLI) | payer OTHER, BC ==
[2020-11-11 11:17] LABS: BASOPHILS # (AUTO) 0.1 10^3/uL (0.0-0.1); BASOPHILS % (AUTO) 1.3 %; EOSINOPHILS # (AUTO) 0.2 10^3/uL (0.0-0.7); EOSINOPHILS % (AUTO) 3.2 %; HCT - HEMATOCRIT 43.8 % (42.0-52.0); HGB - HEMOGLOBIN 14.4 g/dL (14.0-18.0); LYMPHOCYTES # (AUTO) 1.7 10^3/uL (1.5-3.5); LYMPHOCYTES % (AUTO) 27.2 %; MEAN CORPUSCULAR HEMOGLOBIN 30.7 pg (27.0-31.0); MEAN CORPUSCULAR HGB CONC 32.9 g/dL (32.0-36.0); MEAN CORPUSCULAR VOLUME 93.4 fL (80.0-94.0); MEAN PLATELET VOLUME 10.2 fL (7.4-11.4); MONOCYTES # (AUTO) 0.8 10^3/uL (0.0-1.0); MONOCYTES % (AUTO) 12.5 %; NEUTROPHILS # (AUTO) 3.5 10^3/uL (1.5-6.6); NEUTROPHILS % (AUTO) 55.3 %; PLT - PLATELET COUNT 207 10^3/uL (130-450); RED BLOOD COUNT 4.69 10^6/uL (4.70-6.10); RED CELL DISTRIBUTION WIDTH 14.2 % (12.0-15.0); WHITE BLOOD COUNT 6.3 x10^3/uL (4.8-10.8)
[2020-11-11 11:20] LABS: BILIRUBIN,URINE NEGATIVE (NEGATIVE); GLUCOSE, URINE (UA) NEGATIVE (NEGATIVE); KETONES,URINE (UA) NEGATIVE (NEGATIVE); LEUKOCYTE ESTERASE, URINE NEGATIVE (NEGATIVE); NITRITE,URINE NEGATIVE (NEGATIVE); OCCULT BLOOD,URINE MODERATE (NEGATIVE); PH,URINE 6.5 PH (5.0-7.5); PROTEIN,URINE 100 mg/dL (NEGATIVE); UROBILINOGEN,URINE 0.2 (NORMAL) E.U./dL (NORMAL)
[2020-11-11 11:24] LABS: CLARITY,URINE CLEAR (CLEAR)
[2020-11-11 11:29] LABS: BACTERIA,URINE Rare /HPF (None Seen); SQUAMOUS EPITHELIAL CELL,UR NONE SEEN (<= Few); WBC,URINE 0-3 /HPF (0-3)
[2020-11-11 11:35] LABS: % IRON SATURATION 26 % (20-50); ALBUMIN 4.1 g/dL (3.2-5.5); BUN - BLOOD UREA NITROGEN 24 mg/dL (6-20); CALCIUM 9.6 mg/dL (8.5-10.3); CARBON DIOXIDE - CO2 23 mmol/L (21-32); CHLORIDE 112 mmol/L (101-111); CHOLESTEROL 193 mg/dL; CREATININE 1.1 mg/dL (0.6-1.2); GFR - MDRD 67 (>89); GLUCOSE 127 mg/dL (70-100); HDL CHOLESTEROL 64 mg/dL; IRON 80 ug/dL (45-182); LDL CHOLESTEROL,CALCULATED 111 mg/dL; LDL/HDL RATIO 1.7 (<3.6); MAGNESIUM 1.8 mg/dL (1.7-2.8); PHOSPHORUS 2.9 mg/dL (2.5-4.6); POTASSIUM 4.2 mmol/L (3.5-5.0); SODIUM 142 mmol/L (135-145); TOTAL IRON BINDING CAPACITY 309 ug/dL (250-450); TRANSFERRIN 221 mg/dL (180-329); TRIGLYCERIDES 88 mg/dL; URIC ACID 5.1 mg/dL (2.6-7.2); VLDL CHOLESTEROL 18 mg/dL
== END 2020-11-11 10:55 | disposition home or self-care (01) ==
LOC: LAB 10:54
PROVIDERS: ATTEND Internal Medicine Nephrology
DX: Z94.0 Kidney transplant status (principal)
CPT/HCPCS: 36415; 80061; 80069; 80158; 81001; 81003; 81599; 82310; 83540; 83721; 83735; 83970; 84466; 84550; 85025; 87086

== ENCOUNTER 2020-11-28 10:56 | Outpatient (CLI) | payer OTHER, BC ==
[2020-11-28 11:57] LABS: ALBUMIN 4.3 g/dL (3.2-5.5); CALCIUM 9.8 mg/dL (8.5-10.3); CREATININE 1.3 mg/dL (0.6-1.2); PHOSPHORUS 2.8 mg/dL (2.5-4.6); POTASSIUM 4.2 mmol/L (3.5-5.0)
== END 2020-11-28 10:57 | disposition home or self-care (01) ==
LOC: LAB 10:56
PROVIDERS: ATTEND Internal Medicine Nephrology
DX: Z94.0 Kidney transplant status (principal)
CPT/HCPCS: 36415; 80069; 80158; 81599

== ENCOUNTER 2021-01-31 10:26 | Outpatient (CLI) | payer OTHER, BC ==
[2021-01-31 11:05] LABS: BASOPHILS # (AUTO) 0.1 10^3/uL (0.0-0.1); BASOPHILS % (AUTO) 1.1 %; EOSINOPHILS # (AUTO) 0.2 10^3/uL (0.0-0.7); EOSINOPHILS % (AUTO) 3.9 %; HCT - HEMATOCRIT 42.4 % (42.0-52.0); HGB - HEMOGLOBIN 13.9 g/dL (14.0-18.0); LYMPHOCYTES # (AUTO) 1.8 10^3/uL (1.5-3.5); LYMPHOCYTES % (AUTO) 32.4 %; MEAN CORPUSCULAR HEMOGLOBIN 30.3 pg (27.0-31.0); MEAN CORPUSCULAR HGB CONC 32.8 g/dL (32.0-36.0); MEAN CORPUSCULAR VOLUME 92.6 fL (80.0-94.0); MEAN PLATELET VOLUME 10.4 fL (7.4-11.4); MONOCYTES # (AUTO) 0.8 10^3/uL (0.0-1.0); NEUTROPHILS # (AUTO) 2.7 10^3/uL (1.5-6.6); NEUTROPHILS % (AUTO) 48.4 %; PLT - PLATELET COUNT 190 10^3/uL (130-450); RED BLOOD COUNT 4.58 10^6/uL (4.70-6.10); RED CELL DISTRIBUTION WIDTH 13.7 % (12.0-15.0); WHITE BLOOD COUNT 5.6 x10^3/uL (4.8-10.8)
[2021-01-31 11:39] LABS: CREATININE 1.3 mg/dL (0.6-1.2); PHOSPHORUS 3.4 mg/dL (2.5-4.6); POTASSIUM 4.1 mmol/L (3.5-5.0); URIC ACID 4.9 mg/dL (2.6-7.2)
[2021-01-31 11:55] LABS: BILIRUBIN,URINE NEGATIVE (NEGATIVE); GLUCOSE, URINE (UA) NEGATIVE (NEGATIVE); KETONES,URINE (UA) NEGATIVE (NEGATIVE); LEUKOCYTE ESTERASE, URINE NEGATIVE (NEGATIVE); NITRITE,URINE NEGATIVE (NEGATIVE); OCCULT BLOOD,URINE MODERATE (NEGATIVE); PROTEIN,URINE 100 mg/dL (NEGATIVE); UROBILINOGEN,URINE 0.2 (NORMAL) E.U./dL (NORMAL)
[2021-01-31 11:57] LABS: CLARITY,URINE CLEAR (CLEAR)
[2021-01-31 12:03] LABS: BACTERIA,URINE Few /HPF (None Seen); RBC,URINE 0-5 /HPF (0-5); SQUAMOUS EPITHELIAL CELL,UR NONE SEEN (<= Few); WBC,URINE 0-3 /HPF (0-3)
== END 2021-01-31 10:27 | disposition home or self-care (01) ==
LOC: LAB 10:26
PROVIDERS: ATTEND Internal Medicine Nephrology
DX: Z94.0 Kidney transplant status (principal)
CPT/HCPCS: 36415; 80069; 80158; 81001; 81599; 83540; 83735; 83970; 84466; 84550; 85025; 87086

== ENCOUNTER 2021-05-03 11:41 | Outpatient (CLI) | payer OTHER, BC ==
[2021-05-03 12:22] LABS: BASOPHILS # (AUTO) 0.1 10^3/uL (0.0-0.1); BASOPHILS % (AUTO) 1.5 %; EOSINOPHILS # (AUTO) 0.2 10^3/uL (0.0-0.7); EOSINOPHILS % (AUTO) 2.9 %; HGB - HEMOGLOBIN 13.3 g/dL (14.0-18.0); LYMPHOCYTES # (AUTO) 1.7 10^3/uL (1.5-3.5); LYMPHOCYTES % (AUTO) 28.8 %; MEAN CORPUSCULAR HEMOGLOBIN 30.7 pg (27.0-31.0); MEAN CORPUSCULAR HGB CONC 32.4 g/dL (32.0-36.0); MEAN CORPUSCULAR VOLUME 94.7 fL (80.0-94.0); MEAN PLATELET VOLUME 10.4 fL (7.4-11.4); MONOCYTES # (AUTO) 0.8 10^3/uL (0.0-1.0); MONOCYTES % (AUTO) 13.2 %; NEUTROPHILS # (AUTO) 3.2 10^3/uL (1.5-6.6); NEUTROPHILS % (AUTO) 53.3 %; PLT - PLATELET COUNT 202 10^3/uL (130-450); RED BLOOD COUNT 4.33 10^6/uL (4.70-6.10); RED CELL DISTRIBUTION WIDTH 13.8 % (12.0-15.0); WHITE BLOOD COUNT 5.9 x10^3/uL (4.8-10.8)
[2021-05-03 12:52] LABS: CALCIUM 9.6 mg/dL (8.5-10.3); CREATININE 1.1 mg/dL (0.6-1.2); PHOSPHORUS 3.8 mg/dL (2.5-4.6); POTASSIUM 4.4 mmol/L (3.5-5.0)
[2021-05-03 13:11] LABS: RHEUMATOID FACTOR NEGATIVE (Negative)
[2021-05-03 14:09] LABS: CREATININE,URINE 96.1 mg/dL; MICROALBUM/CREATININE RATIO,UR 1130.1 ug/mg (<30.0); MICROALBUMIN,URINE 108.6 mg/dL (0-300.0)
== END 2021-05-03 11:42 | disposition home or self-care (01) ==
LOC: LAB 11:41
PROVIDERS: ATTEND Internal Medicine Nephrology
DX: Z94.0 Kidney transplant status (principal)
CPT/HCPCS: 36415; 80069; 80158; 81599; 82043; 82310; 82570; 82728; 83540; 83970; 84466; 84550; 85025; 86430

== ENCOUNTER 2021-08-25 08:49 | Day surgery (SDC) | payer OTHER, BC, MEDICARE ==
[2021-08-25] MEDS ORDERED: LACTATED RINGERS 1,000 ML IV ONE ×2 (09:20→10:36)
--- NOTE | 2021-08-25 09:48 | ANESTHESIA ---
Pre-Anesthesia VS, & Labs - Diagnosis hx of colon polyps - Procedure colonoscopy Vital Signs: Temp Pulse Resp BP Pulse Ox 37 C 75 13 130/70 96 08/25/21 09:15 08/25/21 09:15 08/25/21 09:15 08/25/21 09:15 08/25/21 09:15 Height: 5 ft 7 in Weight (kg): 113 kg Body Mass Index: 38.9 BMI Classification: Obese - NPO >8 hours - Lab Results Lab results reviewed: Yes Home Medications and Allergies Aspirin [Aspir 81] 81 mg PO DAILY 05/15/14 Cholecalciferol (Vitamin D3) [Vitamin D-3] 50 mcg PO DAILY 05/15/14 Ezetimibe [Zetia] 10 mg PO QPM 05/15/14 Metoprolol Tartrate 25 mg PO BID 05/15/14 Mycophenolate Mofetil [Cellcept] 500 mg PO BID 05/15/14 cycloSPORINE [Cyclosporine] 100 mg PO BID 05/15/14 allopurinoL [Allopurinol] 300 mg PO DAILY 06/05/16 Allergies/Adverse Reactions: Allergies Allergy/AdvReac Type Severity Reaction Status Date / Time [id number] Reductase Allergy Unknown Verified 07/23/18 15:23 Inhibitor [Pblxfez-Bqe-Wvh Reductase Inhibitor] Anes History & Medical History - Anesthetic History Anesthesia Complications: reports: No previous complications Family history of Anesthesia Complications: Denies Family history of Malignant Hyperthermia: Denies - Medical History Cardiovascular: reports: Hypertension, High cholesterol Pulmonary: reports: None Gastrointestinal: reports: None Urinary: reports: Benign prostate hypertrophy, Frequency, Other (kidney transplant 2007) Neuro: reports: None Musculoskeletal: reports: Osteoarthritis, Gout Endocrine/Autoimmune: reports: None Skin: reports: Eczema, Rosacea Smoking Status: Never smoker - Surgical History General: reports: Bowel surgery, Colonoscopy Urologic: reports: Nephrectomy Orthopedic: reports: Knee replacement Exam General: Alert, Oriented x3, Cooperative, No acute distress Dental: WNL Mouth Openin Fingerbreadth Neck Mobility: Normal Mallampati classification: II Plan Anesthesia Type: General, Total IV Consent for Procedure(s) Verified and Reviewed: Yes Code Status: Attempt Resuscitation ASA classification: 3-Severe systemic disease Is this case an emergency?: No
[2021-08-25] MEDS ORDERED: PROPOFOL 500 MG/50 ML 500 MG/50 ML VIAL ONE (10:00)
[2021-08-25] MEDS ORDERED: LIDOCAINE-MPF 2% 5 ML VIAL ONE (10:00)
--- NOTE | 2021-08-25 10:11 | HISTORY & PHYSICAL EXAMINATION ---
Chief Complaint - Chief Complaint Chief Complaint: history of colon polyp History of Present Illness - History Obtained From History obtained from: pt Exam Limitations: none - History of Present Illness HPI Comment/Other: history kidney transplant and colon polyps History - Past Medical History Cardiovascular: reports: Hypertension, High cholesterol Respiratory: reports: None Neuro: reports: None Endocrine/Autoimmune: reports: None GI: reports: None : reports: Benign prostate hypertrophy, Frequency, Other (kidney transplant 2007) Psych: reports: Depression, Anxiety, Panic attacks, Post traumatic stress disorder, Claustrophobia, Obsessive compulsive disorder Musculoskeletal: reports: Osteoarthritis, Gout Derm: reports: Eczema, Rosacea MRSA Hx?: No - Past Surgical History General: reports: Bowel surgery, Colonoscopy Ortho: reports: Knee replacement - POLST Patient has POLST: No Meds/Allgy - Home Medications Home Medications: Ambulatory Orders Medication Instructions Recorded Confirmed Aspirin [Aspir 81] 81 mg PO DAILY 05/15/14 08/25/21 Cholecalciferol (Vitamin D3) 50 mcg PO DAILY 05/15/14 08/25/21 [Vitamin D-3] Ezetimibe [Zetia] 10 mg PO QPM 05/15/14 08/23/21 Metoprolol Tartrate 25 mg PO BID 05/15/14 08/25/21 Mycophenolate Mofetil [Cellcept] 500 mg PO BID 05/15/14 08/25/21 cycloSPORINE [Cyclosporine] 100 mg PO BID 05/15/14 08/25/21 allopurinoL [Allopurinol] 300 mg PO DAILY 06/05/16 08/25/21 - Allergies Allergies/Adverse Reactions: Allergies Allergy/AdvReac Type Severity Reaction Status Date / Time [id number] Reductase Allergy Unknown Verified 07/23/18 15:23 Inhibitor [Hmeimzd-Gal-Nss Reductase Inhibitor] Review of Systems - Other Findings Other Findings: 10 pt ros as above otherwise unremarkable Exam - Vital Signs Reviewed Vital Signs: Yes Vital Signs: Vital Signs x48h Temp Pulse Resp BP Pulse Ox 08/25/21 09:15 37 C 75 13 130/70 96 - Physical Exam General Appearance: positive: No acute distress, Alert Eyes Bilateral: positive: PERRL, EOMI ENT: positive: No signs of dehydration Neck: positive: No JVD Respiratory: positive: No respiratory distress, Breath sounds nml Cardiovascular: positive: Regular rate & rhythm Abdomen: positive: Non-tender, No distention Neurologic/Psychiatric: positive: Oriented x3 Conclusion/Plan - Problem List (1) History of adenomatous polyp of colon Conclusion/Plan: plan colonoscopy. parq held and consent obtained - Lab Results Lab results reviewed: Yes
[2021-08-25 11:02] VITALS: BP 107/65
--- NOTE | 2021-08-25 11:14 | ANESTHESIA POST OP EVALUATION ---
Anesthesia Post Eval - Post Anesthesia Eval Vitals: Last Vital Signs Temp 36.5 C 08/25/21 10:59 Pulse 52 L 08/25/21 10:59 Resp 12 08/25/21 10:59 BP 107/65 08/25/21 10:59 Pulse Ox 96 08/25/21 10:59 CV Function Including HR & BP: Stable Pain Control: Satisfactory Nausea & Vomiting: Negative Mental Status: Baseline Respiratory Status: Airway Patent Hydration Status: Satisfactory Anesthesia Complications: None
== END 2021-08-25 08:50 | disposition home or self-care (01) ==
LOC: SDS 08:49
PROVIDERS: ATTEND Surgery
DX: Z12.11 Encounter for screening for malignant neoplasm of colon (principal); K57.30 Diverticulosis of large intestine without perforation or abscess without bleeding; E66.9 Obesity, unspecified; Z68.38 Body mass index [BMI] 38.0-38.9, adult; R53.83 Other fatigue; Z94.0 Kidney transplant status; I10 Essential (primary) hypertension; F41.9 Anxiety disorder, unspecified; Z86.010 Personal history of colon polyps
CPT/HCPCS: 45378; J7120

== ENCOUNTER 2023-01-11 11:57 | Outpatient (CLI) | payer MEDICARE, OTHER, BC ==
[2023-01-11 12:18] LABS: BASOPHILS # (AUTO) 0.1 10^3/uL (0.0-0.1); BASOPHILS % (AUTO) 1.9 %; EOSINOPHILS # (AUTO) 0.2 10^3/uL (0.0-0.7); EOSINOPHILS % (AUTO) 3.8 %; HCT - HEMATOCRIT 38.9 % (42.0-52.0); HGB - HEMOGLOBIN 12.3 g/dL (14.0-18.0); LYMPHOCYTES # (AUTO) 1.5 10^3/uL (1.5-3.5); LYMPHOCYTES % (AUTO) 27.3 %; MEAN CORPUSCULAR HEMOGLOBIN 29.4 pg (27.0-31.0); MEAN CORPUSCULAR HGB CONC 31.6 g/dL (32.0-36.0); MEAN CORPUSCULAR VOLUME 92.8 fL (80.0-94.0); MONOCYTES # (AUTO) 0.8 10^3/uL (0.0-1.0); MONOCYTES % (AUTO) 14.1 %; NEUTROPHILS # (AUTO) 2.8 10^3/uL (1.5-6.6); NEUTROPHILS % (AUTO) 52.3 %; PLT - PLATELET COUNT 189 10^3/uL (130-450); RED BLOOD COUNT 4.19 10^6/uL (4.70-6.10); RED CELL DISTRIBUTION WIDTH 13.5 % (12.0-15.0); WHITE BLOOD COUNT 5.3 x10^3/uL (4.8-10.8)
[2023-01-11 12:37] LABS: CALCIUM 9.2 mg/dL (8.5-10.3); CREATININE 1.5 mg/dL (0.6-1.2); PHOSPHORUS 3.2 mg/dL (2.5-4.6); POTASSIUM 4.5 mmol/L (3.5-5.0)
[2023-01-11 12:48] LABS: CREATININE,URINE 65.8 mg/dL; PROTEIN/CREATININE RATIO,URINE 0.7 (<=0.2)
[2023-01-12 09:09] LABS: VITAMIN D 25-HYDROXY 36.3 ng/mL (30.0-100.0)
== END 2023-01-11 11:58 | disposition home or self-care (01) ==
LOC: LAB 11:57
PROVIDERS: ATTEND Internal Medicine Nephrology
DX: E21.0 Primary hyperparathyroidism (principal); Z94.0 Kidney transplant status
CPT/HCPCS: 36415; 80069; 80158; 82306; 82570; 83970; 84156; 85025

== ENCOUNTER 2023-04-03 11:46 | Outpatient (CLI) | payer MEDICARE, OTHER, BC ==
[2023-04-03 12:07] LABS: BASOPHILS # (AUTO) 0.1 10^3/uL (0.0-0.1); BASOPHILS % (AUTO) 1.1 %; EOSINOPHILS # (AUTO) 0.2 10^3/uL (0.0-0.7); EOSINOPHILS % (AUTO) 3.6 %; HCT - HEMATOCRIT 38.2 % (42.0-52.0); HGB - HEMOGLOBIN 12.3 g/dL (14.0-18.0); LYMPHOCYTES # (AUTO) 1.6 10^3/uL (1.5-3.5); LYMPHOCYTES % (AUTO) 30.2 %; MEAN CORPUSCULAR HGB CONC 32.2 g/dL (32.0-36.0); MEAN CORPUSCULAR VOLUME 93.2 fL (80.0-94.0); MEAN PLATELET VOLUME 10.4 fL (7.4-11.4); MONOCYTES # (AUTO) 0.7 10^3/uL (0.0-1.0); MONOCYTES % (AUTO) 12.5 %; NEUTROPHILS # (AUTO) 2.7 10^3/uL (1.5-6.6); PLT - PLATELET COUNT 184 10^3/uL (130-450); RED CELL DISTRIBUTION WIDTH 13.9 % (12.0-15.0); WHITE BLOOD COUNT 5.3 x10^3/uL (4.8-10.8)
[2023-04-03 12:20] LABS: BILIRUBIN,URINE NEGATIVE (NEGATIVE); GLUCOSE, URINE (UA) NEGATIVE (NEGATIVE); KETONES,URINE (UA) NEGATIVE (NEGATIVE); LEUKOCYTE ESTERASE, URINE NEGATIVE (NEGATIVE); NITRITE,URINE NEGATIVE (NEGATIVE); OCCULT BLOOD,URINE SMALL (NEGATIVE); PROTEIN,URINE 30 mg/dL (NEGATIVE); UROBILINOGEN,URINE 0.2 (NORMAL) E.U./dL (NORMAL)
[2023-04-03 12:20] LABS: ALBUMIN 4.1 g/dL (3.2-5.5); CALCIUM 9.8 mg/dL (8.5-10.3); CREATININE 1.6 mg/dL (0.6-1.3); PHOSPHORUS 3.8 mg/dL (2.5-5.0); POTASSIUM 4.7 mmol/L (3.5-4.5)
[2023-04-03 12:34] LABS: CLARITY,URINE CLEAR (CLEAR)
[2023-04-03 12:36] LABS: BACTERIA,URINE None Seen /HPF (None Seen); RBC,URINE 0-5 /HPF (0-5); SQUAMOUS EPITHELIAL CELL,UR NONE SEEN (<= Few); WBC,URINE 0-3 /HPF (0-3)
[2023-04-03 12:39] LABS: CREATININE,URINE 96.4 mg/dL; PROTEIN/CREATININE RATIO,URINE 0.4 (<=0.2)
[2023-04-04 06:11] LABS: VITAMIN D 25-HYDROXY 31.2 ng/mL (30.0-100.0)
== END 2023-04-03 11:47 | disposition home or self-care (01) ==
LOC: LAB 11:46
PROVIDERS: ATTEND Internal Medicine Nephrology
DX: N25.81 Secondary hyperparathyroidism of renal origin (principal); Z94.0 Kidney transplant status; E55.9 Vitamin D deficiency, unspecified
CPT/HCPCS: 36415; 80069; 80158; 81001; 82306; 82570; 83970; 84156; 85025; 87086

== ENCOUNTER 2023-07-11 10:20 | Outpatient (CLI) | payer MEDICARE, OTHER, BC ==
[2023-07-11 10:37] LABS: BASOPHILS # (AUTO) 0.1 10^3/uL (0.0-0.1); BASOPHILS % (AUTO) 1.3 %; EOSINOPHILS # (AUTO) 0.2 10^3/uL (0.0-0.7); EOSINOPHILS % (AUTO) 3.4 %; HCT - HEMATOCRIT 39.4 % (42.0-52.0); HGB - HEMOGLOBIN 12.1 g/dL (14.0-18.0); LYMPHOCYTES # (AUTO) 1.7 10^3/uL (1.5-3.5); LYMPHOCYTES % (AUTO) 33.3 %; MEAN CORPUSCULAR HEMOGLOBIN 28.7 pg (27.0-31.0); MEAN CORPUSCULAR HGB CONC 30.7 g/dL (32.0-36.0); MEAN CORPUSCULAR VOLUME 93.6 fL (80.0-94.0); MEAN PLATELET VOLUME 10.3 fL (7.4-11.4); MONOCYTES # (AUTO) 0.7 10^3/uL (0.0-1.0); MONOCYTES % (AUTO) 14.2 %; NEUTROPHILS # (AUTO) 2.5 10^3/uL (1.5-6.6); NEUTROPHILS % (AUTO) 47.4 %; PLT - PLATELET COUNT 195 10^3/uL (130-450); RED BLOOD COUNT 4.21 10^6/uL (4.70-6.10); RED CELL DISTRIBUTION WIDTH 13.9 % (12.0-15.0); WHITE BLOOD COUNT 5.2 x10^3/uL (4.8-10.8)
[2023-07-11 10:49] LABS: BILIRUBIN,URINE NEGATIVE (NEGATIVE); GLUCOSE, URINE (UA) NEGATIVE (NEGATIVE); KETONES,URINE (UA) NEGATIVE (NEGATIVE); LEUKOCYTE ESTERASE, URINE NEGATIVE (NEGATIVE); NITRITE,URINE NEGATIVE (NEGATIVE); OCCULT BLOOD,URINE MODERATE (NEGATIVE); PH,URINE 5.5 PH (5.0-7.5); PROTEIN,URINE 100 mg/dL (NEGATIVE); UROBILINOGEN,URINE 0.2 (NORMAL) E.U./dL (NORMAL)
[2023-07-11 10:50] LABS: ALBUMIN 4.2 g/dL (3.2-5.5); CALCIUM 9.7 mg/dL (8.5-10.3); CREATININE 1.4 mg/dL (0.6-1.3); PHOSPHORUS 3.1 mg/dL (2.5-5.0); POTASSIUM 4.6 mmol/L (3.5-4.5)
[2023-07-11 10:59] LABS: BACTERIA,URINE Rare /HPF (None Seen); CLARITY,URINE CLEAR (CLEAR); RBC,URINE 0-5 /HPF (0-5); SQUAMOUS EPITHELIAL CELL,UR NONE SEEN (<= Few); WBC,URINE 0-3 /HPF (0-3)
== END 2023-07-11 10:21 | disposition home or self-care (01) ==
LOC: LAB 10:20
PROVIDERS: ATTEND Internal Medicine Nephrology
DX: N18.2 Chronic kidney disease, stage 2 (mild) (principal)
CPT/HCPCS: 36415; 80069; 80158; 81001; 85025; 87086

== ENCOUNTER 2023-10-09 10:23 | Outpatient (CLI) | payer MEDICARE, OTHER ==
[2023-10-09 10:45] LABS: BASOPHILS # (AUTO) 0.1 10^3/uL (0.0-0.1); BASOPHILS % (AUTO) 1.9 %; EOSINOPHILS # (AUTO) 0.3 10^3/uL (0.0-0.7); EOSINOPHILS % (AUTO) 5.5 %; HCT - HEMATOCRIT 37.2 % (42.0-52.0); HGB - HEMOGLOBIN 11.7 g/dL (14.0-18.0); LYMPHOCYTES # (AUTO) 1.8 10^3/uL (1.5-3.5); LYMPHOCYTES % (AUTO) 30.7 %; MEAN CORPUSCULAR HEMOGLOBIN 29.5 pg (27.0-31.0); MEAN CORPUSCULAR HGB CONC 31.5 g/dL (32.0-36.0); MEAN CORPUSCULAR VOLUME 93.7 fL (80.0-94.0); MEAN PLATELET VOLUME 10.3 fL (7.4-11.4); MONOCYTES # (AUTO) 0.6 10^3/uL (0.0-1.0); NEUTROPHILS # (AUTO) 2.8 10^3/uL (1.5-6.6); NEUTROPHILS % (AUTO) 48.8 %; PLT - PLATELET COUNT 223 10^3/uL (130-450); RED BLOOD COUNT 3.97 10^6/uL (4.70-6.10); RED CELL DISTRIBUTION WIDTH 13.7 % (12.0-15.0); WHITE BLOOD COUNT 5.8 x10^3/uL (4.8-10.8)
[2023-10-09 11:02] LABS: ALBUMIN 3.9 g/dL (3.2-5.5); CALCIUM 9.6 mg/dL (8.5-10.3); CREATININE 1.4 mg/dL (0.6-1.3); PHOSPHORUS 3.4 mg/dL (2.5-5.0); POTASSIUM 4.9 mmol/L (3.5-4.5)
[2023-10-09 11:12] LABS: BILIRUBIN,URINE NEGATIVE (NEGATIVE); GLUCOSE, URINE (UA) NEGATIVE (NEGATIVE); KETONES,URINE (UA) NEGATIVE (NEGATIVE); LEUKOCYTE ESTERASE, URINE NEGATIVE (NEGATIVE); NITRITE,URINE NEGATIVE (NEGATIVE); OCCULT BLOOD,URINE MODERATE (NEGATIVE); PH,URINE 5.5 PH (5.0-7.5); PROTEIN,URINE 30 mg/dL (NEGATIVE); UROBILINOGEN,URINE 0.2 (NORMAL) E.U./dL (NORMAL)
[2023-10-09 11:19] LABS: BACTERIA,URINE Rare /HPF (None Seen); CLARITY,URINE CLEAR (CLEAR); RBC,URINE 0-5 /HPF (0-5); SQUAMOUS EPITHELIAL CELL,UR RARE Squamous (<= Few); WBC,URINE 0-3 /HPF (0-3)
[2023-10-09 11:40] LABS: CREATININE,URINE 59.7 mg/dL; PROTEIN/CREATININE RATIO,URINE 0.9 (<=0.2)
== END 2023-10-09 10:24 | disposition home or self-care (01) ==
LOC: LAB 10:23
PROVIDERS: ATTEND Internal Medicine Nephrology
DX: Z09 Encounter for follow-up examination after completed treatment for conditions other than malignant neoplasm (principal); Z94.0 Kidney transplant status
CPT/HCPCS: 36415; 80069; 80158; 81001; 82570; 84156; 85025; 87086

== ENCOUNTER 2024-01-08 11:24 | Outpatient (CLI) | payer MEDICARE, OTHER ==
[2024-01-08 11:48] LABS: BILIRUBIN,URINE NEGATIVE (NEGATIVE); GLUCOSE, URINE (UA) NEGATIVE (NEGATIVE); KETONES,URINE (UA) NEGATIVE (NEGATIVE); LEUKOCYTE ESTERASE, URINE NEGATIVE (NEGATIVE); NITRITE,URINE NEGATIVE (NEGATIVE); OCCULT BLOOD,URINE SMALL (NEGATIVE); PROTEIN,URINE 30 mg/dL (NEGATIVE); UROBILINOGEN,URINE 0.2 (NORMAL) E.U./dL (NORMAL)
[2024-01-08 11:52] LABS: BASOPHILS # (AUTO) 0.1 10^3/uL (0.0-0.1); BASOPHILS % (AUTO) 1.5 %; EOSINOPHILS # (AUTO) 0.3 10^3/uL (0.0-0.7); EOSINOPHILS % (AUTO) 5.3 %; HCT - HEMATOCRIT 37.6 % (42.0-52.0); HGB - HEMOGLOBIN 11.9 g/dL (14.0-18.0); LYMPHOCYTES # (AUTO) 1.7 10^3/uL (1.5-3.5); MEAN CORPUSCULAR HEMOGLOBIN 29.3 pg (27.0-31.0); MEAN CORPUSCULAR HGB CONC 31.6 g/dL (32.0-36.0); MEAN CORPUSCULAR VOLUME 92.6 fL (80.0-94.0); MEAN PLATELET VOLUME 11.1 fL (7.4-11.4); MONOCYTES # (AUTO) 0.8 10^3/uL (0.0-1.0); MONOCYTES % (AUTO) 15.2 %; NEUTROPHILS # (AUTO) 2.5 10^3/uL (1.5-6.6); NEUTROPHILS % (AUTO) 46.8 %; PLT - PLATELET COUNT 176 10^3/uL (130-450); RED BLOOD COUNT 4.06 10^6/uL (4.70-6.10); RED CELL DISTRIBUTION WIDTH 13.4 % (12.0-15.0); WHITE BLOOD COUNT 5.3 x10^3/uL (4.8-10.8)
[2024-01-08 12:05] LABS: ALBUMIN 4.1 g/dL (3.2-5.5); CALCIUM 9.8 mg/dL (8.5-10.3); CREATININE 1.4 mg/dL (0.6-1.3); CREATININE,URINE 67.9 mg/dL; PHOSPHORUS 2.9 mg/dL (2.5-5.0); POTASSIUM 4.2 mmol/L (3.5-4.5); PROTEIN/CREATININE RATIO,URINE 0.6 (<=0.2)
[2024-01-08 12:21] LABS: CLARITY,URINE CLEAR (CLEAR)
[2024-01-08 12:22] LABS: WBC,URINE 0-3 /HPF (0-3)
[2024-01-08 12:23] LABS: BACTERIA,URINE None Seen /HPF (None Seen); RBC,URINE 0-5 /HPF (0-5); SQUAMOUS EPITHELIAL CELL,UR NONE SEEN (<= Few)
== END 2024-01-08 11:25 | disposition home or self-care (01) ==
LOC: LAB 11:24
PROVIDERS: ATTEND Physician Assistant Medical
DX: N40.0 Benign prostatic hyperplasia without lower urinary tract symptoms (principal); Z94.0 Kidney transplant status
CPT/HCPCS: 36415; 80069; 80158; 81001; 82570; 84153; 84156; 85025; 87086